=== PATIENT | male | born 1985 | race Caucasian/White ===

== ENCOUNTER 2023-03-05 20:19 | Emergency (ER) | payer BC, SELFPAY ==
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
[2023-03-05 20:45] VITALS: BP 105/43; PULSE 100; RESP 18; TEMP 36.4; O2SAT 98
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
== END 2023-03-05 22:25 | disposition home or self-care (01) ==
PROVIDERS: Emergency Provider Physician Assistant
DX: S82.832A Other fracture of upper and lower end of left fibula, initial encounter for closed fracture (principal); S93.401A Sprain of unspecified ligament of right ankle, initial encounter; V27.49XA Other motorcycle driver injured in collision with fixed or stationary object in traffic accident, initial encounter
CPT/HCPCS: 29515; 73610; 99284